=== PATIENT | female | born 2000 | race Caucasian/White ===

== ENCOUNTER 2021-10-15 18:53 | Emergency (ER) | payer MEDICAID, SELFPAY ==
[2021-10-15 19:05] VITALS: BP 143/74; PULSE 78; RESP 20; TEMP 36.5; O2SAT 100
[2021-10-15 19:41] LABS: Add Urine Microscopic? YES; Appearance Urine Cloudy (Clear); Bacteria Urine Trace /hpf; Bilirubin Urine Negative (Negative); Blood Urine Negative (Negative); Color Urine Yellow (Yellow); Glucose Urine UA Negative (Negative); Ketones Urine Negative (Negative); Leukocyte Esterase Ur Trace LEU/UL (Negative); Mucus Urine Rare /lpf; Nitrate Urine Negative (Negative); Protein Urine Negative (Negative); Squamous Epithelial Cell Urine Many /hpf (Few); Urobilinogen Urine Negative mg/dL (<2.0); WBC Urine 0-3 /hpf
[2021-10-15 19:42] LABS: Specific Grav Ur 1.003 (1.001-1.035)
--- NOTE | 2021-10-15 19:47 | ED.GENADULT ---
HPI - General Adult General Chief complaint: Unspecified Stated complaint: Back pain Time Seen by Provider: 10/15/21 19:18 History of Present Illness HPI narrative: 21-year-old female presenting to the emergency department for evaluation due to multiple complaints including feeling like she cannot concentrate and constipation. Patient does admit to smoking marijuana today. Patient does appear intoxicated on marijuana. Patient denies any homicidal or suicidal ideation. Patient states she is willing to talk to a counselor but does not feel she needs to talk to one today. Related Data Allergies Allergy/AdvReac Type Severity Reaction Status Date / Time No Known Allergies Allergy Verified 10/15/21 18:54 Review of Systems Review of Systems: CONSTITUTIONAL: Denies fever, chills, or sweats. EYES: Denies visual changes, redness, or discharge. ENT: Denies rhinorrhea, congestion, sore throat, or otalgia. CARDIOVASCULAR: Denies chest pain, palpitations, or edema. RESPIRATORY: Denies cough or dyspnea. GASTROINTESTINAL: Denies abdominal pain, nausea, vomiting, or diarrhea. Intermittent constipation GENITOURINARY: Denies dysuria or hematuria. SKIN: Denies rash or itching. MUSCULOSKELETAL: Denies back pain, joint pain, or myalgia. NEUROLOGIC: Denies headache, numbness, or weakness. PSYCHIATRIC: Denies homicidal or suicidal ideation. Does report decreased concentration- All systems reviewed & are unremarkable except as noted in HPI and below Exam Narrative: APPEARANCE: Well appearing, no pain, no distress, well-nourished. HEAD: normocephalic, atraumatic. EYES: PERRLA/EOMI, conjunctivae clear. NOSE: Normal no drainage EARS:TMS clear with good light reflex. THROAT: Pharynx clear, no exudate. NECK: Supple. No adenopathy, no masses. RESPIRATORY: Airway patent, respirations nonlabored. Clear to auscultation bilaterally, no rales, rhonchi, wheezing. CARDIOVASCULAR: Regular rate and rhythm without murmurs rubs or gallops. ABDOMINAL: Soft, nontender, nondistended, normal bowel sounds MUSCULOSKELETAL: Moves all extremities. Strength/ROM intact, No edema, No calf tenderness. NEURO: Alert. Cranial nerves II through XII intact. Good gait. Good coordination SKIN: Warm, dry. Normal Color PSYCHIATRIC: Normal affect/mood. Course Course Emergency Course: Patient was updated on the results and plan for follow up. Patient admits to not drinking much water. Does smoke marijuana. Patient was encouraged to decrease her marijuana intake, and drink more water. encouraged to have follow up with PCP. stable at time of DC. Vital Signs Vital signs: Vital Signs Temperature 97.7 F 10/15/21 19:05 Pulse Rate 78 10/15/21 19:05 Respiratory Rate 20 10/15/21 19:05 Blood Pressure 143/74 H 10/15/21 19:05 Pulse Oximetry 100 10/15/21 19:05 Temperature 97.7 F 10/15/21 19:05 Pulse Rate 66 10/15/21 20:43 Respiratory Rate 16 10/15/21 20:43 Blood Pressure 126/88 10/15/21 20:43 Pulse Oximetry 100 10/15/21 20:43 Medical Decision Making Vital Signs Vital Signs: Vital Signs Temperature 97.7 F 10/15/21 19:05 Pulse Rate 78 10/15/21 19:05 Respiratory Rate 20 10/15/21 19:05 Blood Pressure 143/74 H 10/15/21 19:05 Pulse Oximetry 100 10/15/21 19:05 Temperature 97.7 F 10/15/21 19:05 Pulse Rate 66 10/15/21 20:43 Respiratory Rate 16 10/15/21 20:43 Blood Pressure 126/88 10/15/21 20:43 Pulse Oximetry 100 10/15/21 20:43 Lab Data Labs: Lab Results 10/15/21 10/15/21 Range/Units 19:25 19:25 Urine Color Yellow (Yellow) Urine Appearance Cloudy H (Clear) Urine pH 7.0 (5.0-9.0) Ur Specific Walker 1.003 (1.001-1.035) Urine Protein Negative (Negative) mg/dL Urine Glucose (UA) Negative (Negative) mg/dL Urine Ketones Negative (Negative) mg/dL Ur Blood (Man) Negative (Negative) Urine Nitrate Negative (Negative) Urine Bilirubin Negative (Negative) Urine Urobilin
[2021-10-15 19:49] LABS: Amphetamine Screen Urine Negative (Negative); Barbiturate Screen Urine Negative (Negative); Benzodiazepines Screen Urine Negative (Negative); Cannabinoid Screen Urine Positive (Negative); Cocaine Screen Urine Negative (Negative); Methadone Screen Urine Negative (Negative); Opiate Screen Urine Negative (Negative); Phencyclidine Screen Urine Negative (Negative)
[2021-10-15 20:43] VITALS: BP 126/88; PULSE 66; RESP 16; O2SAT 100
== END 2021-10-15 20:44 | disposition home or self-care (01) ==
PROVIDERS: Emergency Provider Emergency Medicine
DX: K59.00 Constipation, unspecified (principal); F12.10 Cannabis abuse, uncomplicated
CPT/HCPCS: 80307; 81001; 81025; 99283

== ENCOUNTER 2022-12-28 19:07 | Observation (INO) | payer MEDICAID, SELFPAY ==
[2022-12-28] VITALS (7 sets, daily range): BP systolic 126–133; BP diastolic 70–87; PULSE 49–71; RESP 15; TEMP 36.6–36.8; O2SAT 98–100; BMI 23.6
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
[2022-12-28] MEDS: SODIUM CHLORIDE 0.9% IV 1,000 ML 999 ML IV CONT (19:29)
[2022-12-28] MEDS: METOCLOPRAMIDE HCL INJ 10 MG/2 ML VIAL IV PUSH (19:34)
[2022-12-28] MEDS: diphenhydrAMINE HCl INJ 50 MG/ML VIAL 25 MG IV PUSH (19:37)
--- NOTE | 2022-12-28 19:42 | PC.NURSE ---
Patient blew her nose and had a scant amount of blood in her mucus. Patient states that she has had blood in her mucus for roughly two months. Patient denies a history of epistaxis.
[2022-12-28 19:44] LABS: Basophils Percent Auto 0.5 % (0.2-1.2); Eosinophils Absolute Auto 0.1 K/mm3 (0-0.3); Eosinophils Percent Auto 0.6 % (0-4.4); Hematocrit 31.6 % (37.0-47.0); Hemoglobin 10.4 g/dL (12.0-15.0); Immature Granulocyte Absolute 0.07 K/mm3 (0.00-0.031); Immature Granulocyte Percent A 0.8 % (0-0.5); Lymphocytes Absolute Auto 1.88 K/mm3 (0.9-3.2); Lymphocytes Percent Auto 21.2 % (18.3-44.2); Mean Corpuscular HGB Conc 32.9 g/dl (32-36); Mean Corpuscular Hemoglobin 30.1 pg (26-34); Mean Corpuscular Volume 91.3 fl (80-100); Mean Platelet Volume 10.3 fl (7.4-10.4); Monocytes Absolute Auto 0.5 K/mm3 (0.1-0.6); Neutrophils Absolute Auto 6.3 K/mm3 (1.3-6.7); Neutrophils Percent Auto 70.9 % (45.5-73.1); Platelet Count Result 242 k/mm3 (150-375); Red Blood Count 3.46 M/mm3 (4.2-5.4); Red Cell Distribution Width 14.6 % (11.5-14.5); White Blood Count 8.9 K/mm3 (4.5-10.0)
--- NOTE | 2022-12-28 19:50 | PC.NURSE ---
Patient came back from CT and was yelling as she was being rolled back in by technical planner. Patient states fuck my head hurts . Upon arrival in her room patient states I need headache medicine or I'm going to leave . Patient visually upset trying to pull her IV out. Patient then requested a blanket and the lights to be turned off.
--- NOTE | 2022-12-28 19:54 | PC.NURSE ---
Patient was talking to someone else. When asked who the patient was talking to the patient stated nobody. Patient then stated that it does not matter who she was talking to.
[2022-12-28 19:55] LABS: Alanine Aminotransferase 123 U/L (6-35); Albumin Level 3.7 g/dL (3.5-5.1); Alkaline Phosphatase 300 U/L (38-126); Anion Gap 8 mmol/L (8-16); Aspartate Amino Transferase 77 U/L (14-36); Bilirubin,Total 0.7 mg/dL (0.2-1.3); Blood Urea Nitrogen 8 mg/dL (7-17); Calcium 8.4 mg/dL (8.4-10.2); Carbon Dioxide 22 mmol/L (22-30); Chloride 106 mmol/L (98-107); Estimated CRCL calculation 117 ml/min; Estimated Glomerular Filt Rate > 60; Glucose 84 mg/dL (65-110); Potassium 3.4 mmol/L (3.4-5.0); Sodium 136 mmol/L (137-145)
--- NOTE | 2022-12-28 20:32 | PC.NURSE ---
Patient puller her IV out and when asked why patient stated because the fluids were done
--- NOTE | 2022-12-28 20:44 | PC.NURSE ---
Spoke with Dr. Schmid about patient ripping out IV. Per Dr. Camp change IV Tylenol to 1000mg po
[2022-12-28 21:05] LABS: Appearance Urine Cloudy (Clear); Bacteria Urine 2+ /hpf; Bilirubin Urine Negative (Negative); Blood Urine Negative (Negative); Color Urine Yellow (Yellow); Glucose Urine UA Negative (Negative); Ketones Urine Negative (Negative); Leukocyte Esterase Ur 3+ LEU/UL (Negative); Need Manual Microscopic Reviewed; Nitrate Urine Negative (Negative); Non Pathogenic Casts 0-2; Protein Urine Trace mg/dL (Negative); RBC Urine 0-2 /hpf (0-2); Specific Grav Ur 1.012 (1.001-1.035); Squamous Epithelial Cell Urine Many /hpf (Few); WBC Urine 51-100 /hpf
[2022-12-28 21:08] LABS: Add Urine Microscopic? YES
[2022-12-28] MEDS: NITROFURANTOIN MONOHYD MACROCR 100 MG CAP PO (21:40)
[2022-12-28] MEDS: ACETAMINOPHEN 500 MG TABLET 1000 MG PO (21:40)
--- NOTE | 2022-12-28 22:43 | PC.NURSE ---
While being discharged patient requested that her Rx be sent to another pharmacy. Staff told patient they would request Dr. Schmid to send to another pharmacy. While patient was waiting patient went into the bathroom and started making distress noises. ED charge nurse checked on patient as well as staff nurses twice. Patient's nurse then checked on patient and patient stated I'm having a cramping feeling in my stomach and I feel soft down there . ED charge nurse then stated to get patient over to OB. Two nurses assisted patient to wheelchair and escorted patient over to OB.
[2022-12-29] VITALS (20 sets, daily range): BP systolic 105–117; BP diastolic 59–96; PULSE 25–83; O2SAT 80–100
[2022-12-29] MEDS: LACTATED RINGERS 1,000 ML 999 ML IV CONT (01:01)
--- NOTE | 2022-12-29 01:02 | PC.NURSE ---
Pulled a second bag of fluids because the patient unhooked her fluids and the whole bag went all over the floor. Second bag of fluids started because the first bag of fluids was empty.
--- NOTE | 2022-12-29 01:13 | OBADM ---
This patient, Ibeth Kee, admitted to the OB room Labor/Delivery/Recovery 104 for observation. Patient/family oriented to hospital policies and general routines including ID bracelet, bed and alarms, visiting hours, pain management, procedures, bathroom and other care routines, personal items, smoking policy, room service/diet, and visiting hours. Patient/Family are encouraged to report perceived risks to care and to ask questions if they do not understand what they are told or what they should do.
[2022-12-29] MEDS: cefTRIAXone 1 GM VIAL IM (02:03)
[2022-12-29] MEDS: AZITHROMYCIN 250 MG TABLET 1000 MG PO (02:03)
--- NOTE | 2022-12-29 02:24 | PC.NURSE ---
Cab voucher obtained for pt to be transported to her grandfathers [place].
--- NOTE | 2022-12-29 02:40 | PC.NURSE ---
Destination address obtained from pt, cab company notified and in route
--- NOTE | 2022-12-29 07:22 | PN_ITS ---
This report was moved to the correct visit on 01/07/2023. Original report was signed by Mundo Lo MD on 12/29/22721. OB - Triage/Final Diagnosis Visit Information Date of evaluation: 12/28/22 Reason for evaluation: threatened labor Comments/Additional reasons for admission: I have assessed the risk for this patient, Ibeth Kee, and determined that she would benefit from observation care. Evaluation Vital signs: Vital Signs - 24 hr 12/28/22 22:58 12/28/22 22:59 12/28/22 23:32 Pulse Rate 64 Blood Pressure 126/70 Pulse Oximetry 100 100 12/28/22 23:37 12/28/22 23:39 12/29/22 00:01 Pulse Rate 53 L Blood Pressure 111/96 H Pulse Oximetry 100 100 12/29/22 00:04 12/29/22 00:09 12/29/22 00:37 Pulse Rate Blood Pressure Pulse Oximetry 93 100 80 L 12/29/22 00:38 12/29/22 00:38 12/29/22 00:38 Pulse Rate Blood Pressure Pulse Oximetry 82 L 82 L 94 12/29/22 00:38 12/29/22 00:38 12/29/22 00:43 Pulse Rate 83 Blood Pressure 117/64 Pulse Oximetry 100 12/29/22 00:46 12/29/22 00:51 12/29/22 00:56 Pulse Rate Blood Pressure Pulse Oximetry 100 100 100 12/29/22 01:01 12/29/22 01:06 12/29/22 01:11 Pulse Rate 60 Blood Pressure 105/59 L Pulse Oximetry 100 98 97 12/29/22 01:16 12/29/22 01:21 12/29/22 01:26 Pulse Rate Blood Pressure Pulse Oximetry 97 96 96 12/29/22 01:31 12/29/22 01:36 12/29/22 01:41 Pulse Rate 58 L Blood Pressure 105/61 Pulse Oximetry 98 100 100 12/29/22 01:46 12/29/22 01:51 Pulse Rate Blood Pressure Pulse Oximetry 100 100 This report may have been done utilizing a voice recognition system. Attempts have been made to correct errors. However, there may be uncorrected grammatical, spelling, and recognition errors present. Report Initialized date/time: Mundo Lo MD 12/29/22721 Electronically signed by: Mundo Lo MD 12/29/22721 [facility]
== END 2022-12-29 03:05 ==
LOC: ANHED 20:54 → ANHLDR 01-08 07:38
PROVIDERS: Admitting Provider Obstetrics & Gynecology; Emergency Provider Emergency Medicine; Visit Provider Obstetrics & Gynecology
DX: O47.1 False labor at or after 37 completed weeks of gestation (principal); O99.353 Diseases of the nervous system complicating pregnancy, third trimester; G43.909 Migraine, unspecified, not intractable, without status migrainosus; S09.90XA Unspecified injury of head, initial encounter; X58.XXXA Exposure to other specified factors, initial encounter; O09.73 Supervision of high risk pregnancy due to social problems, third trimester; O99.283 Endocrine, nutritional and metabolic diseases complicating pregnancy, third trimester; E86.0 Dehydration; Z59.00 Homelessness unspecified; O99.891 Other specified diseases and conditions complicating pregnancy; N39.0 Urinary tract infection, site not specified; Z3A.38 38 weeks gestation of pregnancy
CPT/HCPCS: 36415; 70450; 80053; 81001; 85025; 87086; 87088; 96361; 96372; 96374; 96375; 99284; A9270; G0378; G0379; J0696; J1200; J2765; J7030; J7120